=== PATIENT | female | born 1990 | race American Indian/Alaskan Native ===

== ENCOUNTER 2016-12-31 18:31 | Emergency (ER) | payer OTHER, MEDICAID ==
[2016-12-31 19:46] VITALS: BP 122/82
[2016-12-31] MEDS ORDERED: MOTRIN PO ONE (20:37)
[2016-12-31] MEDS ORDERED: FLEXERIL PO ONE (20:37)
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
== END 2016-12-31 21:00 | disposition home or self-care (01) ==
LOC: ED 18:31
DX: S09.90XA Unspecified injury of head, initial encounter (principal); G44.319 Acute post-traumatic headache, not intractable; M62.830 Muscle spasm of back; M54.5 Low back pain; V89.2XXA Person injured in unspecified motor-vehicle accident, traffic, initial encounter; Y93.89 Activity, other specified; Y99.9 Unspecified external cause status; Y92.410 Unspecified street and highway as the place of occurrence of the external cause
CPT/HCPCS: 99282

== ENCOUNTER 2017-06-18 09:58 | Emergency (ER) | payer MEDICAID, OTHER ==
[2017-06-18 10:07] VITALS: BP 112/75
[2017-06-18] MEDS ORDERED: NACL 0.9% 500 ML 500 ML IV ONE (10:07)
[2017-06-18 10:37] LABS: Basophils % (Auto) 0.5 % (0.0-1.8); Eosinophils % (Auto) 0.1 % (0.0-4.3); Hematocrit 38.2 % (30.3-42.9); Hemoglobin 12.3 gm/dl (10.1-14.3); Mean Corpuscular HGB Conc 32 % (30-34); Mean Corpuscular Hemoglobin 28 pg (28-32); Mean Corpuscular Volume 88 fl (79-97); Platelet Count 245 K/mm3 (140-440); Red Blood Count 4.33 M/mm3 (3.65-5.03); Red Cell Distribution Width 13.2 % (13.2-15.2); White Blood Count 3.4 K/mm3 (4.5-11.0)
[2017-06-18 10:47] LABS: INR 1.07 (0.87-1.13)
[2017-06-18 11:14] LABS: Alanine Aminotransferase 20 units/L (7-56); Albumin 3.9 g/dL (3.9-5); Albumin/Globulin Ratio 1.2 %; Alkaline Phosphatase 70 units/L (35-129); Anion Gap 16 mmol/L; Bilirubin,Total < 0.20 mg/dL (0.1-1.2); Blood Urea Nitrogen 8 mg/dL (7-17); Calcium 8.8 mg/dL (8.4-10.2); Carbon Dioxide 26 mmol/L (22-30); Chloride 101.3 mmol/L (98-107); Glucose 87 mg/dL (65-100); Potassium 3.7 mmol/L (3.6-5.0); Sodium 140 mmol/L (137-145); Total Protein 7.2 g/dL (6.3-8.2)
--- NOTE | 2017-06-18 12:13 | XRay Report ---
Chest 2 views: History: Possible sepsis. Findings: Normal cardiomediastinal silhouette. Trachea is midline. No consolidation, pneumothorax or pleural effusion. Impression: No acute cardiopulmonary findings.
== END 2017-06-18 16:53 | disposition home or self-care (01) ==
LOC: ED 09:58
DX: R07.9 Chest pain, unspecified (principal); Z53.21 Procedure and treatment not carried out due to patient leaving prior to being seen by health care provider
CPT/HCPCS: 36415; 71020; 80053; 82140; 82805; 85025; 85610; 87040; 93005; 93010

== ENCOUNTER 2017-10-23 11:45 | Emergency (ER) | payer MEDICAID ==
[2017-10-23 13:07] LABS: Basophils % (Auto) 0.5 % (0.0-1.8); Eosinophils # (Auto) 0.1 K/mm3 (0.0-0.4); Eosinophils % (Auto) 1.2 % (0.0-4.3); Hematocrit 35.5 % (30.3-42.9); Hemoglobin 11.7 gm/dl (10.1-14.3); Lymphocytes # (Auto) 2.3 K/mm3 (1.2-5.4); Lymphocytes % (Auto) 44.9 % (13.4-35.0); Mean Corpuscular HGB Conc 33 % (30-34); Mean Corpuscular Hemoglobin 29 pg (28-32); Mean Corpuscular Volume 89 fl (79-97); Monocytes # (Auto) 0.6 K/mm3 (0.0-0.8); Monocytes % (Auto) 12.8 % (0.0-7.3); Platelet Count 201 K/mm3 (140-440); Red Cell Distribution Width 13.6 % (13.2-15.2)
[2017-10-23 15:30] LABS: Bilirubin,Urine NEG (Negative); Blood,Urine SM (Negative); Color,Urine Yellow (Yellow); Mucus,Urine FEW /HPF; Nitrite,Urine NEG (Negative); Protein,Urine <15 mg/dL mg/dL (Negative); Urobilinogen,Urine < 2.0 mg/dL (<2.0); WBC,Urine < 1.0 /HPF (0.0-6.0)
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
--- NOTE | 2017-10-23 17:31 | Ultrasound Report ---
FINAL REPORT PROCEDURE: Transabdominal obstetrical ultrasound. TECHNIQUE: Real-time transabdominal sonography of the uterus, placenta, amniotic fluid, adnexa, and fetus was performed with image documentation. Measurements were obtained to determine age/size. M-mode Doppler was used to document heartbeat. CPT 68374 HISTORY: , vaginal bleeding. COMPARISON: No prior studies are available for comparison. FINDINGS: Image quality is limited because the patient's bladder was not distended. The uterus measures 8.0 centimeters x 4.1 centimeters x 4.6 centimeters. The myometrium appears grossly normal. There are no focal masses. The endometrium is unremarkable. There is no evidence of a gestational sac. Correlation with a quantitative beta HCG value is recommended. Both ovaries appear normal in size. There is no fluid in the cul-de-sac. IMPRESSION: Limited study without a distended bladder. No evidence of an intrauterine .
--- NOTE | 2017-10-23 17:33 | Ultrasound Report ---
FINAL REPORT PROCEDURE: Transvaginal obstetrical ultrasound. TECHNIQUE: Real-time transvaginal sonography of the uterus, placenta, amniotic fluid, adnexa, and fetus was performed with image documentation. Measurements were obtained to determine age/size. M-mode Doppler was used to document heartbeat. CPT 64902 HISTORY: . Vaginal bleeding. COMPARISON: No prior studies are available for comparison. FINDINGS: The uterus is retroflexed. The myometrium is unremarkable. The endometrial echo complex appears normal. There is no evidence of an intrauterine gestational sac. An ectopic cannot be excluded. Correlation with a quantitative beta HCG value is recommended. Both ovaries appear normal in size. There is a small hypoechoic mass in the right ovary which could represent a corpus luteum or a complex cyst. The left ovary appears normal. There is no fluid in the cul-de-sac. IMPRESSION: No evidence of an intrauterine . 2. EDC by US .
[2017-10-23 17:39] LABS: BUN/Creatinine Ratio 28; Blood Urea Nitrogen 11 mg/dL (7-17); Calcium 8.8 mg/dL (8.4-10.2); Hemolysis Index 12
[2017-10-23 18:31] VITALS: BP 100/60
== END 2017-10-23 18:28 | disposition home or self-care (01) ==
LOC: ED 11:45
DX: O03.9 Complete or unspecified spontaneous abortion without complication (principal); Z3A.01 Less than 8 weeks gestation of pregnancy
CPT/HCPCS: 36415; 76801; 76817; 80048; 81001; 84702; 85025; 86850; 86900; 86901; 99284

== ENCOUNTER 2018-01-10 07:56 | Emergency (ER) | payer MEDICAID ==
[2018-01-10] MEDS ORDERED: TYLENOL PO ONE (10:15)
[2018-01-10] MEDS ORDERED: TYLENOL ONE (10:15)
[2018-01-10] MEDS ORDERED: BICILLIN L-A IM ONE (11:30)
[2018-01-10 11:32] VITALS: BP 107/65
--- NOTE | 2018-01-10 11:33 | Emergency Department Report ---
ED ENT HPI - General Chief complaint: Sore Throat Stated complaint: SORE THROAT Time Seen by Provider: 01/10/18 11:28 Source: patient Mode of arrival: Ambulatory Limitations: No Limitations - History of Present Illness Initial comments: 27-year-old -Russian female comes in complaint of sore throat for 3 days. Patient reports fever denies chills reports nausea denies vomiting denies abdominal pain but admits to slight headache. She reports pain when she swallows. Able to drink and eat without difficulties. Denies any chest pain shortness of breathing. Patient reports no past medical history, currently takes no medications and no known drug allergies. MD complaint: sore throat -: days(s) (3) Location: throat Severity scale (0 -10): 10 Quality: burning, sharp Consistency: constant Improves with: none Worsens with: swallowing - Related Data Home Medications Medication Instructions Recorded Confirmed Last Taken Vit Calc,Iron,Folic 1 tab PO DAILY 08/07/16 08/07/16 08/06/16 09:00 [ Vitamins] 1 Previous Rx's Medication Instructions Recorded Last Taken Type Ibuprofen [Motrin] 800 mg PO Q8HR PRN #60 tablet 08/09/16 Unknown Rx Oxycodone HCl/Acetaminophen 1 each PO Q6HR PRN #45 tablet 08/09/16 Unknown Rx [Percocet 7.5/325 mg] Cyclobenzaprine [Flexeril 10 MG 10 mg PO TID PRN #15 tablet 12/31/16 Unknown Rx TAB] Ibuprofen [Motrin 800 MG tab] 800 mg PO TID PRN #15 tablet 12/31/16 Unknown Rx Ibuprofen 600 mg PO Q8H PRN #30 tablet 01/10/18 Unknown Rx Allergies Allergy/AdvReac Type Severity Reaction Status Date / Time No Known Allergies Allergy Verified 08/07/16 18:28 ED Dental HPI - General Chief complaint: Sore Throat Stated complaint: SORE THROAT Time Seen by Provider: 01/10/18 11:28 Source: patient Mode of arrival: Ambulatory Limitations: No Limitations - Related Data Home Medications Medication Instructions Recorded Confirmed Last Taken Vit Calc,Iron,Folic 1 tab PO DAILY 08/07/16 08/07/16 08/06/16 09:00 [ Vitamins] 1 Previous Rx's Medication Instructions Recorded Last Taken Type Ibuprofen [Motrin] 800 mg PO Q8HR PRN #60 tablet 08/09/16 Unknown Rx Oxycodone HCl/Acetaminophen 1 each PO Q6HR PRN #45 tablet 08/09/16 Unknown Rx [Percocet 7.5/325 mg] Cyclobenzaprine [Flexeril 10 MG 10 mg PO TID PRN #15 tablet 12/31/16 Unknown Rx TAB] Ibuprofen [Motrin 800 MG tab] 800 mg PO TID PRN #15 tablet 12/31/16 Unknown Rx Ibuprofen 600 mg PO Q8H PRN #30 tablet 01/10/18 Unknown Rx Allergies Allergy/AdvReac Type Severity Reaction Status Date / Time No Known Allergies Allergy Verified 08/07/16 18:28 ED Review of Systems ROS: Stated complaint: SORE THROAT Other details as noted in HPI Constitutional: fever. denies: chills Eyes: denies: eye pain, eye discharge, vision change ENT: throat pain Respiratory: denies: cough, shortness of breath, wheezing Cardiovascular: denies: chest pain, palpitations Endocrine: no symptoms reported Gastrointestinal: nausea. denies: abdominal pain, vomiting Genitourinary: denies: urgency, dysuria, discharge Musculoskeletal: denies: back pain, joint swelling, arthralgia Skin: denies: rash, lesions Neurological: headache Psychiatric: denies: anxiety, depression Hematological/Lymphatic: denies: easy bleeding, easy bruising ED Past Medical Hx - Past Medical History Previous Medical History?: Yes Hx Hypertension: No Hx Congestive Heart Failure: No Hx Diabetes: No Hx Deep Vein Thrombosis: No Hx Renal Disease: No Hx Sickle Cell Disease: No Hx Seizures: No Hx Asthma: No Hx COPD: No Hx HIV: No - Surgical History Past Surgical History?: Yes Additional Surgical History: - Social History Smoking Status: Never Smoker - Medications Home Medications: Home Medications Medication Instructions Recorded Confirmed Last Taken Type Vit Calc,Iron,Folic 1 tab PO DAILY 08/07/16 08/07/16 08/06/16 09:00 History [ Vitamins] 1 Ibuprofen [Motrin] 800 mg PO Q8HR PRN #60 tablet 08/09/16 Unknown Rx Oxycodone HCl/Acetaminophen 1 each PO Q6HR PRN #45 tablet 08/09/16 Unknown Rx [Percocet 7.5/325 mg] Cyclobenzaprine [Flexeril 10 MG 10 mg PO TID PRN #15 tablet 12/31/16 Unknown Rx TAB] Ibuprofen [Motrin 800 MG tab] 800 mg PO TID PRN #15 tablet 12/31/16 Unknown Rx Ibuprofen 600 mg PO Q8H PRN #30 tablet 01/10/18 Unknown Rx ED Physical Exam - General Limitations: No Limitations General appearance: alert, in no apparent distress - Head Head exam: Present: atraumatic, normocephalic - Eye Eye exam: Present: normal appearance - Expanded ENT Exam Expanded Ear exam: Present: normal external inspection Throat exam: Positive: tonsillar erythema, tonsillomegaly, tonsillar exudate - Neck Neck exam: Present: lymphadenopathy - Respiratory Respiratory exam: Present: normal lung sounds bilaterally. Absent: respiratory distress - Cardiovascular Cardiovascular Exam: Present: regular rate, normal rhythm. Absent: systolic murmur, diastolic murmur, rubs, gallop - GI/Abdominal GI/Abdominal exam: Present: soft, normal bowel sounds - Extremities Exam Extremities exam: Present: normal inspection - Back Exam Back exam: Present: normal inspection - Neurological Exam Neurological exam: Present: alert, oriented X3 - Psychiatric Psychiatric exam: Present: normal affect, normal mood - Skin Skin exam: Present: warm, dry, intact, normal color. Absent: rash ED Course Vital Signs 01/10/18 01/10/18 01/10/18 08:24 10:11 11:22 Temperature 99.8 F H 100.5 F H 99.9 F H Pulse Rate 96 H 95 H 76 Respiratory 18 16 16 Rate Blood Pressure 98/68 Blood Pressure 106/67 107/65 [Left] O2 Sat by Pulse 100 100 100 Oximetry ED Medical Decision Making - Medical Decision Making Patient has been evaluated by this provider fast track. Review of chest patient 's labs so that she is negative for influenza A and B are positive for strep. Discussed the patient I will treat her for strep throat. Patient elects to have a injection of antibiotics. Discussed the patient I will discharge her with ibuprofen and discussed with her to increase her fluid intake and advance her diet as tolerated. Discussed with patient if symptoms persist or gets worse please follow the primary care provider. Critical care attestation.: If time is entered above; I have spent that time in minutes in the direct care of this critically ill patient, excluding procedure time. ED Disposition Clinical Impression: Strep throat Disposition: DC-01 TO HOME OR SELFCARE Is pt being admited?: No Does the pt Need Aspirin: No Condition: Stable Instructions: Strep Throat (ED) Additional Instructions: Please take ibuprofen for pain. Increase fluid intake and advance diet as tolerated. Please follow up with her primary care provider if symptoms persist or gets worse. Prescriptions: Ibuprofen 600 mg PO Q8H PRN #30 tablet PRN Reason: pain Referrals: PATRICIA BRAXTON MD [Primary Care Provider] - 3-5 Days Forms: Work/School Release Form(ED)
== END 2018-01-10 12:11 | disposition home or self-care (01) ==
LOC: ED 07:56
DX: J02.0 Streptococcal pharyngitis (principal)
CPT/HCPCS: 87400; 87430; 96372; 99283; J0561

== ENCOUNTER 2018-05-08 10:09 | Emergency (ER) | payer MEDICAID ==
[2018-05-08 10:57] VITALS: BP 103/69
[2018-05-08] MEDS ORDERED: MOTRIN PO ONE (12:14)
[2018-05-08] MEDS ORDERED: BOOSTRIX IM ONE (12:14)
--- NOTE | 2018-05-08 12:24 | Emergency Department Report ---
Abscess Boil HPI - HPI Chief Complaint: Extremity Problem,Nontraumatic Stated Complaint: FINGER SWELLING Time Seen by Provider: 05/08/18 12:14 Duration: 2 Days Location: Upper Extremity Severity: Mild History: Yes Pain, No Fever, No Purulent Drainage, No Numbness, No Foreign Body , No Previous History, No Insect Bite HPI: This is a 27-year-old female nontoxic in appearance with no signs of distress presents with a left finger paronychia. He stated that swelling has occurred 2 days ago and is getting worse. Patient denies any pus, fever, chills , nausea, vomiting, chest pain instructed by. She denies any allergies in the Past medical history. Patient stated she is currently not up-to-date with tetanus. Home Medications: Home Medications Medication Instructions Recorded Confirmed Last Taken Vit Calc,Iron,Folic 1 tab PO DAILY 08/07/16 08/07/16 08/06/16 09:00 [ Vitamins] 1 Previous Rx's Medication Instructions Recorded Last Taken Type Ibuprofen [Motrin] 800 mg PO Q8HR PRN #60 tablet 08/09/16 Unknown Rx Oxycodone HCl/Acetaminophen 1 each PO Q6HR PRN #45 tablet 08/09/16 Unknown Rx [Percocet 7.5/325 mg] Cyclobenzaprine [Flexeril 10 MG 10 mg PO TID PRN #15 tablet 12/31/16 Unknown Rx TAB] Ibuprofen [Motrin 800 MG tab] 800 mg PO TID PRN #15 tablet 12/31/16 Unknown Rx Ibuprofen 600 mg PO Q8H PRN #30 tablet 01/10/18 Unknown Rx Ibuprofen [Motrin] 600 mg PO Q8H PRN #30 tablet 05/08/18 Unknown Rx Sulfamethoxazole/Trimethoprim 1 each PO BID #14 tablet 05/08/18 Unknown Rx [Bactrim DS TAB] traMADol [Ultram] 50 mg PO Q6HR PRN #12 tablet 05/08/18 Unknown Rx Allergies/Adverse Reactions: Allergies Allergy/AdvReac Type Severity Reaction Status Date / Time No Known Allergies Allergy Verified 05/08/18 10:57 ED Review of Systems ROS: Stated complaint: FINGER SWELLING Other details as noted in HPI Constitutional: denies: chills, fever Eyes: denies: eye pain, eye discharge, vision change ENT: denies: ear pain, throat pain Respiratory: denies: cough, shortness of breath, wheezing Cardiovascular: denies: chest pain, palpitations Endocrine: no symptoms reported Gastrointestinal: denies: abdominal pain, nausea, diarrhea Genitourinary: denies: urgency, dysuria, discharge Musculoskeletal: denies: back pain, joint swelling, arthralgia Skin: denies: rash, lesions Neurological: denies: headache, weakness, paresthesias Psychiatric: denies: anxiety, depression Hematological/Lymphatic: denies: easy bleeding, easy bruising ED Past Medical Hx - Past Medical History Previous Medical History?: No Hx Hypertension: No Hx Congestive Heart Failure: No Hx Diabetes: No Hx Deep Vein Thrombosis: No Hx Renal Disease: No Hx Sickle Cell Disease: No Hx Seizures: No Hx Asthma: No Hx COPD: No Hx HIV: No - Surgical History Past Surgical History?: Yes Additional Surgical History: - Social History Smoking Status: Never Smoker Substance Use Type: None - Medications Home Medications: Home Medications Medication Instructions Recorded Confirmed Last Taken Type Vit Calc,Iron,Folic 1 tab PO DAILY 08/07/16 08/07/16 08/06/16 09:00 History [ Vitamins] 1 Ibuprofen [Motrin] 800 mg PO Q8HR PRN #60 tablet 08/09/16 Unknown Rx Oxycodone HCl/Acetaminophen 1 each PO Q6HR PRN #45 tablet 08/09/16 Unknown Rx [Percocet 7.5/325 mg] Cyclobenzaprine [Flexeril 10 MG 10 mg PO TID PRN #15 tablet 12/31/16 Unknown Rx TAB] Ibuprofen [Motrin 800 MG tab] 800 mg PO TID PRN #15 tablet 12/31/16 Unknown Rx Ibuprofen 600 mg PO Q8H PRN #30 tablet 01/10/18 Unknown Rx Ibuprofen [Motrin] 600 mg PO Q8H PRN #30 tablet 05/08/18 Unknown Rx Sulfamethoxazole/Trimethoprim 1 each PO BID #14 tablet 05/08/18 Unknown Rx [Bactrim DS TAB] traMADol [Ultram] 50 mg PO Q6HR PRN #12 tablet 05/08/18 Unknown Rx ED Abscess Boil Physical Exam - Exam General: Vital signs noted. No distress. Alert and acting appropriately. Exam: Yes Tenderness, Yes Fluctuance, Yes Normal Neurologic Exam, Yes Normal Circulation, No Surrounding Cellulites/Erythema, No Lymphangitis, No Crepitation , No Heart Murmur I & D Note - I & D Note I & D Note: Under sterile field, I used Betadine to cleanse the area. I then used an 15 blade to separate the cuticle from nail bed. About 1 mL of purulent drainage has been noted. I did have patient soak finger with soap and warm water. A sterile 4 x 4 with tape has been applied as dressing. Bleeding is under control. Patient tolerated the procedure well with no signs of distress noted. ED Course Vital Signs 05/08/18 10:54 Temperature 98.2 F Pulse Rate 68 Respiratory 16 Rate Blood Pressure 103/69 O2 Sat by Pulse 100 Oximetry - Reevaluation(s) Reevaluation #1: 05/08/18 12:23 Patient is speaking in full sentences with no signs of distress noted. Critical care attestation.: If time is entered above; I have spent that time in minutes in the direct care of this critically ill patient, excluding procedure time. ED Medical Decision Making - Medical Decision Making This is a 27-year-old female that presents with left ring finger paronychia. Patient is stable and was examined by me. This is incision and drainage and has been performed and patient tolerated well. A sterile dressing has been applied. Patient was educated on proper wound care. Patient is discharged with Bactrim and Ultram and was instructed not to operate any machinery while taking Ultram due to drowsiness. Patient was instructed to refer to Follow-up with a primary care doctor in 3-5 days or if symptoms worsen and continue return to emergency room as soon as possible. At time of discharge, the patient does not seem toxic or ill in appearance. No acute signs of distress noted. Patient agrees to discharge treatment plan of care. No further questions noted by the patient. ED Disposition Clinical Impression: Paronychia Disposition: DC-01 TO HOME OR SELFCARE Is pt being admited?: No Does the pt Need Aspirin: No Condition: Stable Instructions: Paronychia (ED), Acute Wound Care (ED), Tramadol (By mouth) Additional Instructions: Follow-up with a primary care doctor in 3-5 days or if symptoms worsen and continue return to emergency room as soon as possible. Prescriptions: Ibuprofen [Motrin] 600 mg PO Q8H PRN #30 tablet PRN Reason: Pain Sulfamethoxazole/Trimethoprim [Bactrim DS TAB] 1 each PO BID #14 tablet traMADol [Ultram] 50 mg PO Q6HR PRN #12 tablet PRN Reason: Pain Referrals: PRIMARY CAREMD [Primary Care Provider] - 3-5 Days MORRIS BARRERA MD [Staff Physician] - 3-5 Days [facility] [place] [Outside] - 3-5 Days [facility] [Outside] - 3-5 Days Forms: Work/School Release Form(ED)
== END 2018-05-08 12:35 | disposition home or self-care (01) ==
LOC: ED 10:09
DX: L03.012 Cellulitis of left finger (principal)
CPT/HCPCS: 90471; 90715; 99282

== ENCOUNTER 2021-07-15 15:30 | Emergency (ER) | payer OTHER, MEDICAID ==
[2021-07-15 15:48] VITALS: BP 101/64
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
== END 2021-07-15 18:00 | disposition home or self-care (01) ==
LOC: ED 15:30
DX: S16.1XXA Strain of muscle, fascia and tendon at neck level, initial encounter (principal); M62.830 Muscle spasm of back; M54.50 Low back pain, unspecified; Z79.899 Other long term (current) drug therapy; Z98.890 Other specified postprocedural states; V89.2XXA Person injured in unspecified motor-vehicle accident, traffic, initial encounter; Y93.89 Activity, other specified; Y92.488 Other paved roadways as the place of occurrence of the external cause; Y99.8 Other external cause status
CPT/HCPCS: 99281

== ENCOUNTER 2021-12-12 08:17 | Emergency (ER) | payer MEDICAID ==
[2021-12-12] MEDS ORDERED: HYOSCYAMINE SUBL 0.125 MG TAB SL ONE (08:42)
--- NOTE | 2021-12-12 08:43 | Emergency Department Report ---
ED Abdominal Pain HPI - General Chief Complaint: Abdominal Pain Stated Complaint: POST ABDOMINAL PAIN Time Seen by Provider: 12/12/21 08:33 Source: patient Mode of arrival: Ambulatory Limitations: No Limitations - History of Present Illness Initial Comments: Patient presents with postoperative abdominal pain. She had an elective done several days ago. Subsequent to the procedure she has developed mid abdominal pain. She states the pain is sharp in the mid abdomen. She has never had pain like this before. She states that she had some lower abdominal cramping but that was expected. She did not expect to have this mid abdominal sharp pain. The pain does not radiate or migrate. It is across the mid abdomen at the umbilicus. She has no fevers or chills but there is no cough congestion. She has no history of dysuria or frequency. Patient was concerned because of this and decided to come here. She states that she did try to go to her follow- up appointment at the clinic that completed the procedure. There were lots of people that were protesting. She was having to wait outside for over an hour and she decided to go get seen someplace else. She attempted to go to her usual health care provider and was unable to be seen. She decided to come here instead. - Related Data Home Medications Medication Instructions Recorded Confirmed Last Taken Vit Calc,Iron,Folic 1 tab PO DAILY 08/07/16 08/07/16 08/06/16 09:00 [ Vitamins] 1 Previous Rx's Medication Instructions Recorded Last Taken Type Ibuprofen [Motrin] 800 mg PO Q8HR PRN #60 tablet 08/09/16 Unknown Rx Oxycodone HCl/Acetaminophen 1 each PO Q6HR PRN #45 tablet 08/09/16 Unknown Rx [Percocet 7.5/325 mg] Cyclobenzaprine [Flexeril 10 MG 10 mg PO TID PRN #15 tablet 12/31/16 Unknown Rx TAB] Ibuprofen [Motrin 800 MG tab] 800 mg PO TID PRN #15 tablet 12/31/16 Unknown Rx Ibuprofen 600 mg PO Q8H PRN #30 tablet 01/10/18 Unknown Rx Ibuprofen [Motrin] 600 mg PO Q8H PRN #30 tablet 05/08/18 Unknown Rx Sulfamethoxazole/Trimethoprim 1 each PO BID #14 tablet 05/08/18 Unknown Rx [Bactrim DS TAB] traMADoL [Ultram] 50 mg PO Q6HR PRN #12 tablet 05/08/18 Unknown Rx 21/Iron Fu/Folic Acid 1 each PO DAILY #30 tablet 09/26/18 Unknown Rx [ Complete Caplet] Dicyclomine [Bentyl] 20 mg PO QID PRN #30 tablet 12/12/21 Unknown Rx Allergies Allergy/AdvReac Type Severity Reaction Status Date / Time No Known Allergies Allergy Verified 09/26/18 09:45 ED Review of Systems ROS: Stated complaint: POST ABDOMINAL PAIN Other details as noted in HPI Comment: All other systems reviewed and negative Constitutional: denies: fever Eyes: denies: vision change ENT: denies: throat pain Respiratory: denies: cough Cardiovascular: denies: chest pain Endocrine: denies: unexplained weight loss Gastrointestinal: as per HPI Genitourinary: denies: dysuria Musculoskeletal: denies: back pain Skin: denies: rash Neurological: denies: headache Hematological/Lymphatic: denies: easy bruising ED Past Medical Hx - Past Medical History Hx Hypertension: No Hx Congestive Heart Failure: No Hx Diabetes: No Hx Deep Vein Thrombosis: No Hx Renal Disease: No Hx Sickle Cell Disease: No Hx Seizures: No Hx Asthma: No Hx COPD: No Hx HIV: No - Surgical History Additional Surgical History: Elective . - Family History Family history: no significant - Social History Smoking Status: Never Smoker Substance Use Type: None - Medications Home Medications: Home Medications Medication Instructions Recorded Confirmed Last Taken Type Vit Calc,Iron,Folic 1 tab PO DAILY 08/07/16 08/07/16 08/06/16 09:00 History [ Vitamins] 1 Ibuprofen [Motrin] 800 mg PO Q8HR PRN #60 tablet 08/09/16 Unknown Rx Oxycodone HCl/Acetaminophen 1 each PO Q6HR PRN #45 tablet 08/09/16 Unknown Rx [Percocet 7.5/325 mg] Cyclobenzaprine [Flexeril 10 MG 10 mg PO TID PRN #15 tablet 12/31/16 Unknown Rx TAB] Ibuprofen [Motrin 800 MG tab] 800 mg PO TID PRN #15 tablet 12/31/16 Unknown Rx Ibuprofen 600 mg PO Q8H PRN #30 tablet 01/10/18 Unknown Rx Ibuprofen [Motrin] 600 mg PO Q8H PRN #30 tablet 05/08/18 Unknown Rx Sulfamethoxazole/Trimethoprim 1 each PO BID #14 tablet 05/08/18 Unknown Rx [Bactrim DS TAB] traMADoL [Ultram] 50 mg PO Q6HR PRN #12 tablet 05/08/18 Unknown Rx 21/Iron Fu/Folic Acid 1 each PO DAILY #30 tablet 09/26/18 Unknown Rx [ Complete Caplet] Dicyclomine [Bentyl] 20 mg PO QID PRN #30 tablet 12/12/21 Unknown Rx ED Physical Exam - General Limitations: No Limitations, Other (Pulse ox noted and normal) General appearance: alert, in no apparent distress - Head Head exam: Present: atraumatic, normocephalic - Eye Eye exam: Present: normal appearance, PERRL, EOMI. Absent: scleral icterus - ENT ENT exam: Present: normal orophraynx, normal external ear exam - Neck Neck exam: Present: normal inspection. Absent: meningismus - Respiratory Respiratory exam: Present: normal lung sounds bilaterally. Absent: respiratory distress - Cardiovascular Cardiovascular Exam: Present: regular rate, normal rhythm - GI/Abdominal GI/Abdominal exam: Present: soft, tenderness (Periumbilical). Absent: distended, guarding, rebound - Extremities Exam Extremities exam: Present: normal capillary refill. Absent: calf tenderness - Back Exam Back exam: Absent: CVA tenderness (R), CVA tenderness (L) - Neurological Exam Neurological exam: Present: alert, oriented X3, CN II-XII intact, normal gait. Absent: motor sensory deficit - Psychiatric Psychiatric exam: Present: normal affect, normal mood - Skin Skin exam: Present: warm, dry ED Course Vital Signs 12/12/21 08:30 Temperature 98.4 F Pulse Rate 83 Respiratory 16 Rate Blood Pressure 103/62 O2 Sat by Pulse 100 Oximetry - Reevaluation(s) Reevaluation #1: 12/12/21 08:43 Labs and x-rays were ordered. Old records reviewed. Reevaluation #2: 12/12/21 10:14 Labs were noted. Ultrasound was ordered. Reevaluation #3: 12/12/21 12:40 Ultrasound was noted and the patient was discharged. ED Medical Decision Making - Lab Data Result diagrams: 12/12/21 09:36 12/12/21 09:36 - Medical Decision Making Patient presented with postoperative abdominal pain. She did not have distention or tympany. There is no concern for bowel obstruction. She did not have significant vomiting that would have suggested a postoperative pancreatitis or hepatitis. She certainly was not jaundiced. She did not have peritonitis on exam. There was no free air noted on x-ray. I am not concerned for uterine rupture. She does not appear to be septic or toxic. There is no evidence to suggest intra-abdominal abscess. There was no evidence of retained products. I would expect her hCG to still be positive and be trending down. She is aware of these labs and the need for follow-up. We have discussed explicit return precautions. Critical Care Time: No Critical care attestation.: If time is entered above; I have spent that time in minutes in the direct care of this critically ill patient, excluding procedure time. ED Disposition Clinical Impression: Postoperative abdominal pain Disposition: 01 HOME / SELF CARE / HOMELESS Is pt being admited?: No Condition: Stable Instructions: Abdominal Pain, Adult, [id number], Abdominal Pain (ED) Additional Instructions: Drink plenty water. Return for problems. Have a bland diet. Follow-up with your regular doctor for recheck and further management. Continue to use Tylenol or ibuprofen for pain. Prescriptions: Dicyclomine [Bentyl] 20 mg PO QID PRN #30 tablet PRN Reason: abdominal pain Referrals: PRIMARY CARE, [Primary Care Provider] - 3-5 Days
--- NOTE | 2021-12-12 09:21 | XRay Report ---
ABDOMEN 2 views VIEW(S) with chest radiograph INDICATION / CLINICAL INFORMATION: Abdominal pain COMPARISON: No relevant prior studies are available for comparison FINDINGS: TUBES / LINES: None. BOWEL GAS PATTERN: The bowel gas pattern appears nonobstructive. ADDITIONAL FINDINGS: The accompanying PA chest radiograph demonstrates no evidence of acute cardiopul monary process. IMPRESSION: 1. No radiographic evidence of acute intra-abdominal process. Signer Name: Winsome Toney MD Signed: 12/12/2021 9:17 AM Workstation Name: [id number]
[2021-12-12 09:47] LABS: Hematocrit 37.6 % (30.3-42.9); Hemoglobin 12.7 gm/dl (10.1-14.3); Mean Corpuscular HGB Conc 34 % (30-34); Mean Corpuscular Volume 91 fl (79-97); Platelet Count 280 K/mm3 (140-440); Red Blood Count 4.12 M/mm3 (3.65-5.03); Red Cell Distribution Width 13.3 % (13.2-15.2)
[2021-12-12 10:09] LABS: Alanine Aminotransferase 12 units/L (7-56); Albumin 4.6 g/dL (3.9-5); Blood Urea Nitrogen 12 mg/dL (7-17); Calcium 9.6 mg/dL (8.4-10.2); Hemolysis Index 20
[2021-12-12 10:15] LABS: BUN/Creatinine Ratio 30
--- NOTE | 2021-12-12 12:11 | Ultrasound Report ---
US OB transvaginal INDICATION: Possible retained products of conception. TECHNIQUE: Transvaginal OB ultrasound COMPARISON: None available. FINDINGS: The uterus measures 6.8 x 3.2 x 4.7 cm with endometrial thickness of 8 mm. There is no significant va scularity within the endometrium itself. Normal vascularity is seen in the myometrium of the uterus. Tiny nabothian cyst is noted. There is a hemorrhagic cyst in the right ovary. Left ovary appears normal. IMPRESSION: 1. No findings to suggest retained product of conception. 2. Hemorrhagic cyst in the right ovary. Signer Name: Lc Ibarra MD Signed: 12/12/2021 12:07 PM Workstation Name: [id number]
--- NOTE | 2021-12-12 12:18 | Ultrasound Report ---
US OB <= 14 weeks fetus INDICATION: Possible retained products of conception. TECHNIQUE: Transvaginal and transabdominal OB ultrasound COMPARISON: None available. FINDINGS: The uterus measures 6.8 x 3.2 x 4.7 cm with endometrial thickness of 8 mm. There is no significant va scularity within the endometrium itself. Normal vascularity is seen in the myometrium of the uterus. Tiny nabothian cyst is noted. There is a hemorrhagic cyst in the right ovary. Left ovary appears normal. IMPRESSION: 1. No findings to suggest retained product of conception. 2. Hemorrhagic cyst in the right ovary. Signer Name: Lc Ibarra MD Signed: 12/12/2021 12:13 PM Workstation Name: [id number]
[2021-12-12 12:50] VITALS: BP 107/69
== END 2021-12-12 12:50 | disposition home or self-care (01) ==
LOC: ED 08:17
DX: G89.18 Other acute postprocedural pain (principal); R10.30 Lower abdominal pain, unspecified; Z98.890 Other specified postprocedural states
CPT/HCPCS: 36415; 74022; 76801; 76817; 80053; 84702; 85027; 99284